=== PATIENT | female | born 1990 | race Caucasian/White ===

== ENCOUNTER 2017-09-29 06:37 | Inpatient (IN) | payer BC, OTHER ==
[~2017-09-29 06:37] MED LIST: Lactated Ringers 1,000 ML IV SCH; Sodium Chloride 0.9% 10 ML Syringe FLUSH PRN; ceFAZolin 2 GM in Premix Bag 1 BAG IV ONE; ceFAZolin 2 GM in Sodium Chloride 0.9% 100 ML IV ONE
[2017-09-29] MEDS ORDERED: ceFAZolin 1 GM Vial ONE (06:50)
[2017-09-29] MEDS ORDERED: Scopolamine 1.5 MG Transdermal Patch TOP ONE (07:21)
[2017-09-29] MEDS ORDERED: Citric Acid/Sodium Citrate Solution 30 ML Cup PO ONE (07:22)
--- NOTE | 2017-09-29 08:34 | PREOP ---
ADMISSION DATE: 09/29/2017 DATE OF SURGERY: 09/29/2017. PREOPERATIVE EXAM: 09/26/2017. REASON FOR VISIT: Repeat section. INDICATION: Previous , does not desire a consideration. SITES: [facility] [place]. ANESTHESIA: Regional. SURGEON: Benoit Canales MD. HISTORY OF PRESENT ILLNESS: Farrah Dumas is a 27-year-old 2, para 1- 0-0-1, female, EDC 10/06/2017, admitted to [facility] [place] on the morning of 09/29/2017 for repeat section. Please see accompanying records. Uncomplicated accurate dates confirmed by growth, ultrasound, and satisfactory maternal and well-being. No complicating issues. Risks and benefits were discussed. vitamins only. PAST MEDICAL HISTORY: Significant for previous section. No other operative procedures, hospitalizations, unusual childhood diseases, major injuries, or fractures. 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 28, good health. Daughter, Sis, age 3. Nonsmoker. No alcohol consumption. No illicit drug use. FAMILY HISTORY: Noncontributory. REVIEW OF SYSTEMS: Feeling well. Baby has been active. No contractions, bleeding, or complicating issues. Has been in good health. PHYSICAL EXAMINATION: VITAL SIGNS: Stable. GENERAL: Young lady, cooperative, conversant. HEENT: Funduscopic benign. Bright TMs. Clear nasal discharge. Mouth and oropharynx clear. CHEST: Clear in all lung good. HEART: Regular. BREASTS: Exam deferred. ABDOMEN: Benign. 37-cm uterine fundus, heart tones 144 left lower quadrant. PELVIC: Examination deferred. EXTREMITIES: Well perfused. Minimal edema. LABORATORY STUDIES: Done the morning of procedure. ASSESSMENT: Preoperative examination for upcoming repeat section. Risks, benefits, and expectations accordingly. No contraindication. Excellent candidate. Will be seen by Dr. Canales morning of procedure. /[id number] /HUNTER
[2017-09-29] MEDS ORDERED: Bupivacaine 0.75%/D5W 2 ML Amp ISPINAL ONE (08:40)
[2017-09-29] MEDS ORDERED: Ondansetron 4 MG/2 ML SDV IVPUSH ONE (08:40)
[2017-09-29] MEDS ORDERED: Oxytocin 10 Units/1 ML SDV IV ONE (08:40)
[2017-09-29] MEDS ORDERED: fentaNYL 100 MCG/2 ML SDV IV ONE (08:40)
[2017-09-29] MEDS ORDERED: ePHEDrine/Normal Saline 50 MG/5 ML Syringe IV ONE (08:40)
[2017-09-29] MEDS ORDERED: Midazolam 1 MG/ML 2 ML SDV IV ONE (08:40)
[2017-09-29] MEDS ORDERED: Lactated Ringers 1,000 ML IV ONE (08:40)
[2017-09-29] MEDS ORDERED: Morphine PF 10 MG/10 ML SDV ONE (08:40)
--- NOTE | 2017-09-29 08:55 | PCM.HPR ---
H & P Addendum review - H & P Addendum Review Date of Original H & P: 09/27/17 Date Reviewed: 09/29/17 Time Reviewed: 08:10 Patient was Examined: No Changes
--- NOTE | 2017-09-29 09:15 | PREOP ---
ADMISSION DATE: 09/29/2017 DATE OF SURGERY: 09/29/2017. REASON FOR VISIT: Repeat section. HISTORY OF PRESENT ILLNESS: Farrah Dumas is a 27-year-old, 2, para 1-0-0-1 female, EDC 10/06/2017, will be admitted the morning of 09/29/[address] Canales will be provider for record. Farrah has had uncomplicated without maternal complications. Diagnostic ultrasound dates in growth are consistent with EDC of 10/06. MEDICATIONS: Present daily medications include vitamins. PAST MEDICAL HISTORY: Significant for previous section. No other operative procedures, hospitalizations, unusual childhood diseases, major injuries, or fractures. SOCIAL HISTORY: Resident of [place]. 28, good health. Sis, a 3-year- old daughter. Daycare provider by report. Nonsmoker, no alcohol consumption. No illicit drug use. FAMILY HISTORY: Negative for early heart disease, diabetes mellitus, or inheritable cancers. REVIEW OF SYSTEMS: Feeling well. Baby has been active. She had no contractions of consequence bleeding, discharge, or loss of amniotic fluid. Weight gains have been appropriate. Bowel has been fine. Bladder has been fine. No blood in urine. No blood in stools. PHYSICAL EXAMINATION: VITAL SIGNS: Stable, 88.451 kg, 36.6 degrees Fahrenheit, pulse of 100, blood pressure 132/78. GENERAL: Young lady, cooperative, conversant. HEENT: Funduscopic benign. Bright TMs. Clear nasal discharge. Mouth and oropharynx clear. NECK: Benign. Thyroid small. CHEST: Clear to auscultation in all lung good. HEART: On auscultation, no ectopy or murmur. ABDOMEN: 37 cm uterine fundus, vertex presentation. heart tones 140. PELVIC: Deferred. EXTREMITIES: Well perfused. No edema. LABORATORY STUDIES: Pending. ASSESSMENT: Preoperative examination for upcoming section. No contraindications. Risks, benefits, and expectations discussed at length. Dr. Canales will see her in the morning of procedure. /[id number] /HUNTER
--- NOTE | 2017-09-29 09:53 | PCM.OPNOTE ---
- General Post-Op/Procedure Note Date of Surgery/Procedure: 09/29/17 Operative Procedure(s): Repeat C-sect Pre Op Diagnosis: Term preg; previous C-sect Post-Op Diagnosis: Same Anesthesia Technique: Spinal Primary Surgeon: Benoit Canales Anesthesia Provider: Maricruz King Factory Hand: Braeden Ramirez Pathology: Placenta EBL in mLs: 400 Complications: None Condition: Good
[2017-09-29] MEDS ORDERED: Naloxone 0.4 MG/ML SDV IVPUSH PRN ×2 (09:58→10:03)
[2017-09-29] MEDS ORDERED: Sennosides 8.6 MG Tab PO PRN (09:58)
[2017-09-29] MEDS ORDERED: ePHEDrine 50 MG/ML SDV IVPUSH PRN (09:58)
[2017-09-29] MEDS ORDERED: diphenhydrAMINE 50 MG/ML SDV IVPUSH PRN (09:58)
[2017-09-29] MEDS ORDERED: Ondansetron 4 MG/2 ML SDV IVPUSH PRN (10:03)
[2017-09-29] MEDS ORDERED: Morphine 2 MG/ML Syringe IVPUSH PRN (10:03)
[2017-09-29] MEDS ORDERED: Promethazine 6.25 MG in Sodium Chloride 0.9% 50 ML IV PRN (10:03)
[2017-09-29] MEDS ORDERED: Nalbuphine 10 MG/1 ML Vial IVPUSH PRN (10:03)
[2017-09-29] MEDS ORDERED: diphenhydrAMINE 50 MG/ML SDV IV PRN (10:03)
[2017-09-29] MEDS: Morphine 2 MG/ML Syringe IVPUSH PRN ×3 (10:21→10:50)
[2017-09-29] MEDS: Ketorolac 15 MG/ML SDV IVPUSH PRN ×2 (15:12→21:40)
--- NOTE | 2017-09-29 15:27 | OR ---
DATE OF OPERATION: 09/29/2017 SURGEON: Benoit Canales MD PREOPERATIVE DIAGNOSIS: Term , previous section. POSTOPERATIVE DIAGNOSIS: Term , previous section. PROCEDURE: Repeat section. JEWEL HOLE CORNERER: Braeden Ramirez MD. ANESTHESIA: Spinal. HISTORY: This is a 27-year-old female, is term with a prior approximately 3 years ago. I met with the patient and her prior to the procedure. Risks and complications were discussed and informed consent was obtained. DESCRIPTION OF PROCEDURE: The patient was brought to the operating room, where spinal anesthetic was administered. Potter catheter was inserted and Flowtrons applied. Her abdomen was prepped with ChloraPrep and draped sterilely. A transverse incision was made through her previous scar and extended to the anterior rectus fascia which was incised. Rectus fascia was from the rectus muscles. Muscles were split in the midline and peritoneal cavity entered without difficulty. No adhesions were present. The lower uterine segment was well developed and the surface sharply incised until the amniotic sac was visible. The sac was bluntly entered with a large amount of clear fluid present. 's head was delivered. The position was left occiput transverse. Mouth and nose were suctioned. Rest of the was delivered without difficulty. The cord was clamped and cut and cord blood obtained. male was handed off to the nursing staff. The uterus was massaged and the placenta without difficulty. All membranes were ensured to be stripped. The uterus was closed in a single layer using running locking #1 Vicryl. One reinforcement stitch was placed towards the center where minimal oozing occurred. After hemostasis was assured, the uterus was delivered back into the abdominal cavity. Suture line was reinspected and remained hemostatic. The rectus muscles and peritoneum were closed with a running 2-0 chromic. Rectus fascia was closed with running #1 Vicryl. Subcutaneous tissues irrigated and skin closed with a running 4-0 Vicryl subcuticular suture. Benzoin and Steri-Strips were placed and sterile dressing applied. The vagina had a small amount of old bloody fluid after the uterus was massaged. The patient tolerated the procedure well. Estimated blood loss 400 mL. She returned to postanesthesia in stable condition. /[id number] IWONA/HUNTER
[2017-09-29] MEDS: Lactated Ringers 1,000 ML IV SCH (19:15)
[2017-09-30] MEDS: Lactated Ringers 1,000 ML IV SCH (03:59)
[2017-09-30] MEDS: Ketorolac 15 MG/ML SDV IVPUSH PRN ×2 (04:10→10:08)
--- NOTE | 2017-09-30 08:19 | PCM.SURGPN ---
- General Info Date of Service: 09/30/17 POD#: 1 Functional Status: Reports: Pain Controlled, Tolerating Diet, Ambulating - Review of Systems General: Reports: No Symptoms Gastrointestinal: Reports: No Symptoms - Patient Data Vitals - Most Recent: Last Vital Signs Temp 98.6 F 09/30/17 00:30 Pulse 81 09/30/17 00:30 Resp 18 09/30/17 00:30 BP 96/53 L 09/30/17 00:30 Pulse Ox 94 L 09/30/17 00:30 Weight - Most Recent: 88.451 kg I&O - Last 24 Hours: Intake & Output 09/29/17 09/30/17 09/30/17 22:59 06:59 14:59 Intake Total 3355 590 Output Total 800 1300 Balance 2555 -710 Lab Results Last 24 Hrs: Laboratory Results - last 24 hr 09/29/17 09/30/17 Range/Units 07:58 06:35 WBC 16.1 H (4.5-12.0) X10-3/uL RBC 3.32 (3.23-5.20) x10(6)uL Hgb 9.9 L (11.5-15.5) g/dL Hct 28.7 L (30.0-51.3) % MCV 86.5 (80-96) fL MCH 30.0 (27.7-33.6) pg MCHC 34.6 (32.2-35.4) g/dL RDW 13.1 (11.5-15.5) % Plt Count 218 (125-369) X10(3)uL MPV 8.3 (7.4-10.4) fL Add Manual Diff Yes Neutrophils % (Manual) 81 (46-82) % Lymphocytes % (Manual) 11 L (13-37) % Monocytes % (Manual) 7 (4-12) % Eosinophils % (Manual) 1 (0-5) % Blood Type B POSITIVE Gel Antibody Screen Negative Med Orders - Current: Current Medications Diphenhydramine HCl (Benadryl) 25 mg IVPUSH Q6H PRN PRN Reason: Itching or Nausea Last Admin: 09/29/17 11:40 Dose: 25 mg Diphenhydramine HCl (Benadryl) 25 mg IV ONETIME PRN PRN Reason: Pruritus Docusate Sodium (Colace) 100 mg PO Q12H PRN PRN Reason: Constipation Ephedrine Sulfate (Ephedrine Sulfate) 5 mg IVPUSH ASDIRECTED PRN PRN Reason: Other Lactated Ringer's (Ringers, Lactated) 1,000 mls @ 125 mls/hr IV ASDIRECTED HARRY Last Admin: 09/30/17 03:59 Dose: 125 mls/hr Promethazine HCl 6.25 mg/ (Sodium Chloride) 50.25 mls @ 200 mls/hr IV Q6H PRN PRN Reason: Nausea/Vomiting Ibuprofen (Motrin) 600 mg PO Q6H PRN PRN Reason: mild pain or fever Ketorolac Tromethamine (Toradol) 15 mg IVPUSH Q6H PRN PRN Reason: Pain Stop: 10/04/17 10:09 Last Admin: 09/30/17 04:10 Dose: 15 mg Morphine Sulfate (Morphine) 2 mg IVPUSH Q1H PRN PRN Reason: Pain Morphine Sulfate (Morphine) 2 mg IVPUSH Q3M PRN PRN Reason: Abdominal Pain Last Admin: 09/29/17 10:50 Dose: 2 mg Nalbuphine HCl (Nubain) 10 mg IVPUSH Q1H PRN PRN Reason: Pruritus Naloxone HCl (Narcan) 0.1 mg IVPUSH ONETIME PRN PRN Reason: Respiratory Depression Naloxone HCl (Narcan) 0.1 mg IVPUSH ONETIME PRN PRN Reason: Oversedation Ondansetron HCl (Zofran) 4 mg IVPUSH Q6H PRN PRN Reason: Nausea/Vomiting Senna (Senna) 8.6 mg PO BEDTIME PRN PRN Reason: Constipation Sodium Chloride (Saline Flush) 10 ml FLUSH ASDIRECTED PRN PRN Reason: Keep Vein Open Discontinued Medications Cefazolin Sodium (Ancef) Confirm Administered Dose 2 gm .ROUTE .STK-MED ONE Stop: 09/29/17 06:51 Last Admin: 09/29/17 07:54 Dose: Not Given Citric Acid/Sodium Citrate (Bicitra Solution) 30 ml PO ONETIME ONE Stop: 09/29/17 07:23 Last Admin: 09/29/17 08:02 Dose: 30 ml Lactated Ringer's (Ringers, Lactated) 1,000 mls @ 125 mls/hr IV ASDIRECTED HARRY Stop: 09/29/17 19:15 Last Admin: 09/29/17 07:46 Dose: 125 mls/hr Cefazolin Sodium/Dextrose 2 gm (/ Premix) 50 mls @ 100 mls/hr IV ONETIME ONE Stop: 09/29/17 06:29 Last Admin: 09/29/17 08:11 Dose: 100 mls/hr Scopolamine (Transderm-Scop) 1.5 mg TOP ONETIME ONE Stop: 09/29/17 07:22 Last Admin: 09/29/17 08:02 Dose: 1.5 mg - Exam General: Alert, Oriented Lungs: Clear to Auscultation GI/Abdominal Exam: Soft - Problem List Review Problem List Initiated/Reviewed/Updated: Yes - My Orders Last 24 Hours: Active Orders 24 hr Category Date Time Status Ambulate [RC] PER UNIT ROUTINE Care 09/29/17 09:58 Active Antiembolic Devices [RC] .Routine Care 09/29/17 09:59 Active Communication Order [RC] ASDIRECTED Care 09/29/17 10:03 Active Communication Order [RC] ASDIRECTED Care 09/29/17 10:03 Active Communication Order [RC] ASDIRECTED Care 09/29/17 10:03 Active Communication Order [RC] Per Unit Routine Care 09/29/17 09:58 Active Communication Order [RC] Per Unit Routine Care 09/29/17 09:58 Active Intake and Output [RC] Q4HR Care 09/29/17 10:03 Active May Shower [RC] ASDIRECTED Care 09/30/17 08:00 Active Oxygen Therapy [RC] PRN Care 09/29/17 10:03 Active RT Incentive Spirometry [RC] Q2HWA Care 09/29/17 09:59 Active Vital Signs [RC] PER UNIT ROUTINE Care 09/29/17 09:58 Active Wound Care [RC] DAILY Care 09/29/17 09:58 Active Clear Liquid Diet [DIET] Diet 09/29/17 Lunch Active Docusate Sodium [Colace] Med 09/29/17 09:58 Active 100 mg PO Q12H PRN Ibuprofen [Motrin] Med 09/30/17 08:00 Active 600 mg PO Q6H PRN Ketorolac [Toradol] Med 09/29/17 10:03 Active 15 mg IVPUSH Q6H PRN Lactated Ringers [Ringers, Lactated] 1,000 ml Med 09/29/17 10:00 Active IV ASDIRECTED Morphine Med 09/29/17 10:03 Active 2 mg IVPUSH Q1H PRN Morphine Med 09/29/17 10:11 Active 2 mg IVPUSH Q3M PRN Nalbuphine [Nubain] Med 09/29/17 10:03 Active 10 mg IVPUSH Q1H PRN Naloxone [Narcan] Med 09/29/17 09:58 Active 0.1 mg IVPUSH ONETIME PRN Naloxone [Narcan] Med 09/29/17 10:03 Active 0.1 mg IVPUSH ONETIME PRN Ondansetron [Zofran] Med 09/29/17 10:03 Active 4 mg IVPUSH Q6H PRN Promethazine [Phenergan] 6.25 mg Med 09/29/17 10:03 Active Sodium Chloride 0.9% [Normal Saline] 50 ml IV Q6H Sennosides [Senna] Med 09/29/17 09:58 Active 8.6 mg PO BEDTIME PRN diphenhydrAMINE [Benadryl] Med 09/29/17 10:03 Active 25 mg IV ONETIME PRN diphenhydrAMINE [Benadryl] Med 09/29/17 09:58 Active 25 mg IVPUSH Q6H PRN ePHEDrine [ePHEDrine Sulfate] Med 09/29/17 09:58 Active 5 mg IVPUSH ASDIRECTED PRN DVT/VTE Prophylaxis Reflex [OM.PC] Routine Oth 09/29/17 09:58 Ordered Do Not Administer Anticoagulant Meds [AST] Per Unit Oth 09/29/17 10:03 Ordered Routine Do Not Administer IV Narcs or Sedatives [AST] Per Unit Oth 09/29/17 10:03 Ordered Routine Medication Orders Diphenhydramine HCl (Benadryl) 25 mg IVPUSH Q6H PRN PRN Reason: Itching or Nausea Last Admin: 09/29/17 11:40 Dose: 25 mg Diphenhydramine HCl (Benadryl) 25 mg IV ONETIME PRN PRN Reason: Pruritus Docusate Sodium (Colace) 100 mg PO Q12H PRN PRN Reason: Constipation Ephedrine Sulfate (Ephedrine Sulfate) 5 mg IVPUSH ASDIRECTED PRN PRN Reason: Other Lactated Ringer's (Ringers, Lactated) 1,000 mls @ 125 mls/hr IV ASDIRECTED HARRY Last Admin: 09/30/17 03:59 Dose: 125 mls/hr Infusion: 09/30/17 03:15 Dose: 125 mls/hr Admin: 09/29/17 19:15 Dose: 125 mls/hr Promethazine HCl 6.25 mg/ (Sodium Chloride) 50.25 mls @ 200 mls/hr IV Q6H PRN PRN Reason: Nausea/Vomiting Ibuprofen (Motrin) 600 mg PO Q6H PRN PRN Reason: mild pain or fever Ketorolac Tromethamine (Toradol) 15 mg IVPUSH Q6H PRN PRN Reason: Pain Stop: 10/04/17 10:09 Last Admin: 09/30/17 04:10 Dose: 15 mg Admin: 09/29/17 21:40 Dose: 15 mg Admin: 09/29/17 15:12 Dose: 15 mg Morphine Sulfate (Morphine) 2 mg IVPUSH Q1H PRN PRN Reason: Pain Morphine Sulfate (Morphine) 2 mg IVPUSH Q3M PRN PRN Reason: Abdominal Pain Last Admin: 09/29/17 10:50 Dose: 2 mg Admin: 09/29/17 10:35 Dose: 2 mg Admin: 09/29/17 10:21 Dose: 2 mg Nalbuphine HCl (Nubain) 10 mg IVPUSH Q1H PRN PRN Reason: Pruritus Naloxone HCl (Narcan) 0.1 mg IVPUSH ONETIME PRN PRN Reason: Respiratory Depression Naloxone HCl (Narcan) 0.1 mg IVPUSH ONETIME PRN PRN Reason: Oversedation Ondansetron HCl (Zofran) 4 mg IVPUSH Q6H PRN PRN Reason: Nausea/Vomiting Senna (Senna) 8.6 mg PO BEDTIME PRN PRN Reason: Constipation Sodium Chloride (Saline Flush) 10 ml FLUSH ASDIRECTED PRN PRN Reason: Keep Vein Open - Assessment Assessment (Free Text/Narrative):: Doing well POD #1 - Plan Plan (Free Text/Narrative):: D/C IV and Potter
[2017-09-30] MEDS: Acetaminophen/HYDROcodone 325-5 MG Tab PO PRN ×3 (12:53→22:24)
[2017-09-30] MEDS: Ibuprofen 600 MG Tab PO PRN ×2 (14:50→21:20)
[2017-09-30] MEDS: Docusate Sodium 100 MG Cap PO PRN (23:21)
[2017-10-01] MEDS: Acetaminophen/HYDROcodone 325-5 MG Tab PO PRN ×2 (03:37→12:38)
[2017-10-01] MEDS: Ibuprofen 600 MG Tab PO PRN (08:12)
[2017-10-01] MEDS: Docusate Sodium 100 MG Cap PO PRN (11:08)
[2017-10-01 11:14] VITALS: BP 102/70
--- NOTE | 2017-10-03 00:22 | DISCH ---
DISCHARGE DATE: 10/01/2017 HOSPITAL COURSE: Farrah Dumas is a 27-year-old, 2, para 2 female, who underwent primary on the morning of 09/29/2016. Dr. Canales, surgeon of record. Preoperative care was appropriate, no contraindications, at term 39 weeks' gestation by dates and ultrasound. section went without difficulty. Postoperatively, spinal analgesia was beneficial, oral analgesics were provided. Intravenous fluids were maintained for the first day of stay. Catheter was removed on the first postoperative day as was IV. Diet was advanced. Complications were none. Wound was inspected on a daily basis. Lochia and flow were uncomplicated. Preoperative hemoglobin 13.1. Postoperative hemoglobin 9.9. PHYSICAL EXAMINATION: At the time of discharge: NECK: Benign. Thyroid small. CHEST: Clear in all lung good. HEART: Regular. BREASTS: Pendulous without masses. ABDOMEN: U-2. Transverse incision is healing without difficulty. Lochia and flow are appropriate. EXTREMITIES: Minimal edema in the lower extremities. ASSESSMENT: Repeat section, no complications. PLAN: Discharged home with lengthy instructions, recommendations, and care. Recheck in 2 weeks' time, visit in 6 weeks' time. /[id number] MARI/HUNTER
== END 2017-10-01 14:10 | disposition home or self-care (01) | DRG 766 ==
LOC: FB.OB 06:37
PROVIDERS: ADMIT Surgery; ATTEND Surgery
PROC: 10D00Z1 Extraction of Products of Conception, Low, Open Approach (ICD-10-PCS; principal; 2017-09-29)
DX: O34.211 Maternal care for low transverse scar from previous cesarean delivery (principal); N85.8 Other specified noninflammatory disorders of uterus; Z3A.39 39 weeks gestation of pregnancy; Z37.0 Single live birth
CPT/HCPCS: 36415; 85025; 86850; 86900; 86901; 88307; A9270-GY; J0690; J1200; J1885; J2250; J2270; J2405; J2590; J3010; J7120

== ENCOUNTER 2022-09-14 01:38 | Emergency (ER) | payer BC, OTHER ==
[2022-09-14 01:56] VITALS: BP 121/71; PULSE 106
[2022-09-14] MEDS ORDERED: Ibuprofen 600 MG Tab PO ONE (01:58)
== END 2022-09-14 03:38 | disposition home or self-care (01) ==
LOC: FB.ED 01:38
DX: S52.502A Unspecified fracture of the lower end of left radius, initial encounter for closed fracture (principal); J45.909 Unspecified asthma, uncomplicated; W00.0XXA Fall on same level due to ice and snow, initial encounter
CPT/HCPCS: 29105; 29125; 73110-LT; 99281; 99283; A9270-GY